=== PATIENT | male | born 1950 | race Caucasian/White ===

== ENCOUNTER → 2017-06-22 | Outpatient (CLI) | payer MEDICARE | END | disposition home or self-care (01) | LOC: CVU 08:14 | PROVIDERS: ATTEND Internal Medicine Cardiovascular Disease | DX: I35.2 Nonrheumatic aortic (valve) stenosis with insufficiency (principal); Z95.1 Presence of aortocoronary bypass graft; I25.2 Old myocardial infarction; I10 Essential (primary) hypertension; Z87.891 Personal history of nicotine dependence | CPT/HCPCS: C8929 ==

== ENCOUNTER 2019-04-12 13:59 | Day surgery (SDC) | payer MEDICARE ==
[~2019-04-12] VITALS: Ht 175.3 cm; Wt 127.0 kg
[2019-04-12 14:33] VITALS: BP 127/66
[2019-04-12] MEDS ORDERED: MIDAZOLAM 1 MG/ML, 5ML ONE (14:44)
[2019-04-12] MEDS ORDERED: VERAPAMIL 2.5 MG/ML, 2ML ONE (14:44)
[2019-04-12] MEDS ORDERED: FENTANYL PF 100 MCG/2ML ONE ×2 (14:44→15:55)
[2019-04-12] MEDS ORDERED: HEPARIN 1,000 UNITS/ML, 10ML ONE (14:44)
[2019-04-12] MEDS ORDERED: BIVALIRUDIN 250 MG ONE ×2 (14:44→15:55)
[2019-04-12] MEDS ORDERED: LIDOCAINE-MPF 1%, 5ML ONE (14:44)
[2019-04-12] MEDS ORDERED: LISI5TAB7 PO (14:56)
[2019-04-12] MEDS ORDERED: UBID100C24 PO (14:56)
[2019-04-12] MEDS ORDERED: LACT1CAP35 PO (14:56)
[2019-04-12] MEDS ORDERED: METO25TA91 PO (14:56)
[2019-04-12] MEDS ORDERED: NIAC500T9 PO (14:56)
[2019-04-12] MEDS ORDERED: HYDR1TAB15 PO (14:56)
[2019-04-12] MEDS ORDERED: ASPI-496 PO (14:56)
[2019-04-12] MEDS ORDERED: ATOR40TA PO (14:56)
[2019-04-12 15:08] LABS: ANION GAP 6 mmol/L (5-15); CALCIUM 8.8 mg/dL (8.5-10.1); CHLORIDE 109 mmol/L (98-107); CREATININE 0.91 mg/dL (0.7-1.3)
[2019-04-12 15:13] LABS: BASOPHILS # (AUTO) 0.08 x10^3/uL (0-0.1); BASOPHILS % (AUTO) 1 % (0-1); EOSINOPHILS # (AUTO) 0.22 x10^3/uL (0-0.4); EOSINOPHILS % (AUTO) 2 % (1-7); LYMPHOCYTES # (AUTO) 2.17 x10^3/uL (1-3.4); LYMPHOCYTES % (AUTO) 21 % (22-44); MD NO; MEAN CORPUSCULAR HEMOGLOBIN 30.5 pg (27.5-34.5); MEAN CORPUSCULAR HGB CONC 32.2 g/dL (33.2-36.2); MEAN CORPUSCULAR VOLUME 94.7 fL (81-97); MEAN PLATELET VOLUME 9.1 fL (7.4-10.4); MONOCYTES # (AUTO) 0.77 x10^3/uL (0.2-0.8); MONOCYTES % (AUTO) 7 % (2-9); NEUTROPHILS # (AUTO) 7.17 x10^3/uL (1.8-6.8); NEUTROPHILS % (AUTO) 69 % (42-75); PLATELET COUNT 230 x10^3/uL (130-400); RED BLOOD COUNT 5.32 x10^6/uL (4.38-5.82); RED CELL DISTRIBUTION WIDTH 14.7 % (9.4-14.8)
[2019-05-02] MEDS ORDERED: CLOP75TA PO (11:17)
== END 2019-04-12 19:45 | disposition home or self-care (01) ==
LOC: CACL 13:59 → 5SO 17:59 → CACL 19:45
PROVIDERS: ATTEND Internal Medicine Cardiovascular Disease
DX: I25.82 Chronic total occlusion of coronary artery (principal); I25.810 Atherosclerosis of coronary artery bypass graft(s) without angina pectoris; I35.1 Nonrheumatic aortic (valve) insufficiency; E78.5 Hyperlipidemia, unspecified; Z79.82 Long term (current) use of aspirin; Z88.8 Allergy status to other drugs, medicaments and biological substances
CPT/HCPCS: 36415; 80048; 85025; 93455; 99156; 99157; C1760; C1769; C1894; J2250; J3010; Q9967; G0378; J0583; J1644

== ENCOUNTER 2019-06-04 10:46 | Outpatient (CLI) | payer MEDICARE ==
[~2019-06-04 10:46] MED LIST: ASPI-496 PO; ATOR40TA PO; CLOP75TA PO; HYDR1TAB15 PO; LACT1CAP35 PO; LISI5TAB7 PO; METO25TA91 PO; NIAC500T9 PO; UBID100C24 PO
== END 2019-06-04 23:59 | disposition home or self-care (01) ==
LOC: CVU 10:46
PROVIDERS: ATTEND Internal Medicine Cardiovascular Disease
DX: I35.0 Nonrheumatic aortic (valve) stenosis (principal); I51.7 Cardiomegaly; I11.0 Hypertensive heart disease with heart failure; Z95.1 Presence of aortocoronary bypass graft; Z91.040 Latex allergy status; Z91.048 Other nonmedicinal substance allergy status; Z72.0 Tobacco use
CPT/HCPCS: 93306

== ENCOUNTER → 2020-04-25 | Outpatient (CLI) | payer MEDICARE | END | disposition home or self-care (01) | LOC: CVU 10:28 | PROVIDERS: ATTEND Internal Medicine Cardiovascular Disease | DX: I34.8 Other nonrheumatic mitral valve disorders (principal); I65.29 Occlusion and stenosis of unspecified carotid artery; R06.02 Shortness of breath | CPT/HCPCS: 93306 ==

== ENCOUNTER → 2020-09-24 | Outpatient (CLI) | payer MEDICARE | END | disposition home or self-care (01) | LOC: CVU 07:05 | PROVIDERS: ATTEND Internal Medicine Cardiovascular Disease | DX: I08.1 Rheumatic disorders of both mitral and tricuspid valves (principal); I11.9 Hypertensive heart disease without heart failure; I25.5 Ischemic cardiomyopathy | CPT/HCPCS: 93306 ==